=== PATIENT | male | born 1950 | race Caucasian/White ===

== ENCOUNTER 2018-11-19 07:00 | Outpatient (CLI) | payer MEDICARE | END 2018-11-19 23:59 | disposition home or self-care (01) | LOC: CVU 07:00 → CFH 23:59 | PROVIDERS: ATTEND Internal Medicine Cardiovascular Disease | DX: I35.8 Other nonrheumatic aortic valve disorders (principal); I10 Essential (primary) hypertension; E78.5 Hyperlipidemia, unspecified | CPT/HCPCS: 0399T; 78452; 93017; 93306; A9502 ==

== ENCOUNTER → 2020-10-26 | Outpatient (CLI) | payer MEDICARE ==
[~2020-10-26] MED LIST: ASPI81TA45 PO; LISI1TAB39 PO; METO25TA91 PO; NITR0.4T28 SL; SIMV40TA20 PO; TAMS-11 PO; ZOLP10TA PO; [UNRECOGNIZED DRUG - OTHER] PO
== END | disposition home or self-care (01) ==
LOC: CFH 06:46
PROVIDERS: ATTEND Internal Medicine Cardiovascular Disease
DX: I35.8 Other nonrheumatic aortic valve disorders (principal); I11.9 Hypertensive heart disease without heart failure; E78.5 Hyperlipidemia, unspecified
CPT/HCPCS: 93306